=== PATIENT | male | born 1965 | race Hispanic/Latino ===

== ENCOUNTER 2020-07-23 09:00 | Outpatient (CLI) | payer OTHER ==
--- NOTE | 2020-07-23 12:03 | ULT ---
ABDOMINAL ULTRASOUND: INDICATION: Anemia. Abnormal liver function tests. FINDINGS: Gallbladder has a normal sonographic appearance. No evidence of gallstones. The common duct is norm al caliber. Imaging of the liver shows a focal hypoechoic area in the liver measuring approximately 1.5 cm. Thi s is indeterminate on this exam and further evaluation with CT abdomen with and without contrast foll owing liver protocol is recommended. Visualized aorta and IVC unremarkable. Spleen appears normal. Visualized pancreas unremarkable. Both kidneys are imaged and appear unremarkable. IMPRESSION: 1. An indeterminate hypoechoic lesion in the liver measuring up to 1.[address] abdomen wit h and without contrast following liver protocol. 2. Gallbladder is unremarkable. POS: [facility]
== END 2020-07-23 09:01 | disposition home or self-care (01) ==
LOC: BICULT 09:00
PROVIDERS: ATTEND Internal Medicine
DX: R94.5 Abnormal results of liver function studies (principal); R19.7 Diarrhea, unspecified; D64.9 Anemia, unspecified; K76.9 Liver disease, unspecified
CPT/HCPCS: 93975